=== PATIENT | male | born 1985 | race Caucasian/White ===

== ENCOUNTER 2016-08-21 15:30 | Emergency (ER) | payer SELFPAY ==
[~2016-08-21] VITALS: Ht 172.7 cm; Wt 87.8 kg
[~2016-08-21 15:30] MED LIST: HYDROCODON-ACE1 EAC7 PO; NAPROXEN500 MG PO; TRAMADOL HCL50 MG PO; ZOFRAN ODT4 MG PO
[2016-08-21 17:13] LABS: ADD MIUA? YES; BILIRUBIN NEGATIVE; BLOOD LARGE; COLOR YELLOW ((YELLOW)); GLUCOSE (STRIP) NEGATIVE; KETONES 5; LEUKOCYTES NEGATIVE; NITRITE NEGATIVE; PROTEIN (STRIP) 30; SPECIFIC GRAVITY 1.026 (1.000-1.030); UROBILINOGEN 0.2 MG/DL (0.2-1.0)
[2016-08-21 17:28] LABS: BACTERIA NONE SEEN /HPF; EPITHELIAL CELLS NONE SEEN /HPF; MUCUS TRACE /LPF; RED BLOOD CELLS TNTC /HPF (0-5); UCUL ADDED? NO
[2016-08-21 19:08] LABS: CHLORIDE 106 mEq/L (99-109)
[2016-08-21 19:09] LABS: SODIUM 139 mEq/L (136-147)
[2016-08-21 19:10] LABS: GLUCOSE 118 mg/dL (70-99)
[2016-08-21 19:12] LABS: ANION GAP 10 MEQ/L (2-14)
[2016-08-21 19:14] LABS: GFR ESTIMATE (CALCULATED) > 59 mL/min/
[2016-08-21 19:15] LABS: UREA NITROGEN (BUN) 21 mg/dL (9-23)
[2016-08-21 21:26] VITALS: BP 130/80
== END 2016-08-21 21:27 | disposition home or self-care (01) ==
LOC: EME 15:30
PROVIDERS: Physician Assistant
DX: R31.9 Hematuria, unspecified (principal); N50.82 Scrotal pain; Z87.891 Personal history of nicotine dependence
CPT/HCPCS: 80048; 81003; 87086; 99281; 99284

== ENCOUNTER 2017-10-31 14:01 | Emergency (ER) | payer OTHER ==
[~2017-10-31] VITALS: Ht 172.7 cm; Wt 90.3 kg
[2017-10-31] MEDS ORDERED: MOTRIN600 MG PO (15:10)
[2017-10-31] MEDS ORDERED: VALIUM2 MG PO (15:10)
[2017-10-31 15:28] VITALS: BP 117/81
== END 2017-10-31 15:29 | disposition home or self-care (01) ==
LOC: EME 14:01 → EXP 14:01
DX: M62.830 Muscle spasm of back (principal); M54.5 Low back pain; V43.52XA Car driver injured in collision with other type car in traffic accident, initial encounter; Y92.410 Unspecified street and highway as the place of occurrence of the external cause; Z88.0 Allergy status to penicillin
CPT/HCPCS: 99281; 99283